=== PATIENT | male | born 2000 | race Caucasian/White ===

== ENCOUNTER 2021-12-22 16:59 | Observation (INO) ==
[2021-12-22 17:46] LABS: Hematocrit 39 % (42-52); Hemoglobin 13.2 g/dL (14.0-18.0); Mean Corpuscular HGB Conc 34 g/dL (31-36); Mean Corpuscular Hemoglobin 29 pg (27-31); Mean Corpuscular Volume 87 fL (80-94); Platelet Count 319 10^3/uL (150-450); Red Cell Distribution Width 13 % (10-15); White Blood Count 6.8 10^3/uL (3.5-10.8)
[2021-12-22 17:58] LABS: INR 1.22 (0.89-1.11)
[2021-12-22 18:28] LABS: ABS Eosinophils 0.2 10^3/ul (0-0.6); ABS Monocytes 0.6 10^3/ul (0-0.8); ABS Neutrophils 3.9 10^3/ul (1.5-7.7); Eosinophil % 2.8 %; Lymphocyte % 29.6 %
[2021-12-22 18:29] LABS: Albumin 4.4 g/dL (3.2-5.2); Albumin/Globulin Ratio 1.4 (1-3); Calcium 9.3 mg/dL (8.6-10.3); Globulin 3.1 g/dL (2-4); Magnesium 1.8 mg/dL (1.9-2.7); Potassium 3.8 mmol/L (3.5-5.0); Total Bilirubin 0.7 mg/dL (0.2-1.0); Total Protein 7.5 g/dL (6.4-8.9); eGFR CKD-EPI 89.1 (>60)
[2021-12-22 19:10] LABS: Urine Benzodiazepine Screen None Detected (None Detect); Urine Cannabinoids Screen None Detected (None Detect); Urine Opiates Screen None Detected (None Detect)
[2021-12-22 19:18] LABS: High Sensitivity Troponin 1 Hr < 3 pg/mL (<20)
[2021-12-22 22:18] LABS: C Reactive Protein 9.05 mg/L (<8.01)
[2021-12-23] MEDS ORDERED: NS 0.9% 1000 ml BAG 1,000 ML IV SCH (01:00)
[2021-12-23 05:48] LABS: Hematocrit 38 % (42-52); Hemoglobin 12.9 g/dL (14.0-18.0); Mean Corpuscular HGB Conc 34 g/dL (31-36); Mean Corpuscular Hemoglobin 30 pg (27-31); Mean Corpuscular Volume 86 fL (80-94); Mean Platelet Volume 6.8 fL (7.4-10.4); Platelet Count 315 10^3/uL (150-450); Red Blood Count 4.38 10^6 /uL (4.18-5.48); Red Cell Distribution Width 13 % (10-15); White Blood Count 7.6 10^3/uL (3.5-10.8)
[2021-12-23 06:13] LABS: ABS Basophils 0.1 10^3/ul (0-0.2); ABS Eosinophils 0.2 10^3/ul (0-0.6); ABS Lymphocytes 2.7 10^3/ul (1.0-4.8); ABS Monocytes 0.8 10^3/ul (0-0.8); ABS Neutrophils 3.8 10^3/ul (1.5-7.7); Eosinophil % 2.8 %; Lymphocyte % 35.1 %; Nucleated Red Blood Cells % 0.1
[2021-12-23 06:14] LABS: Calcium 9.1 mg/dL (8.6-10.3); Potassium 4.1 mmol/L (3.5-5.0)
[2021-12-23 08:57] LABS: TSH Ultra Thyroid Stim Horm 3.25 mcIU/mL (0.34-5.60)
[2021-12-23] MEDS ORDERED: Iohexol 350 (CONTRAST) 500 ML MDV IV ONE (09:32)
[2021-12-23] MEDS ORDERED: Gadoteridol (CONTRAST) 279.3 MG/ML 10 ML IV ONE (19:56)
[2021-12-23] MEDS ORDERED: Acetaminophen IV 1 GM/100ML 1,000 MG/100 ML BAG IV PRN (21:01)
[2021-12-24] MEDS ORDERED: Ondansetron 4 mg VIAL 2 MG/ML 2 ml VIAL IV PRN (04:06)
[2021-12-24] MEDS ORDERED: Prochlorperazine 5 mg/ml 2 ml VIAL (10 mg) IV PRN (08:38)
[2021-12-24 08:52] VITALS: BP 129/76
[2021-12-24 14:40] LABS: Albumin 3.3 g/dL (3.4-4.7); Albumin/Globulin Ratio 0.94; Gamma Globulin 1.2 g/dL (0.6-1.6); Total Protein(PEP) 6.9 g/dL (6.3 - 7.9)
== END 2021-12-24 09:00 | disposition home or self-care (01) ==
LOC: EDHOLD 16:59 → ED 16:59 → SUATTDRO 23:07 → SSU 12-23 01:54
PROVIDERS: ADMIT Internal Medicine; ATTEND Internal Medicine